=== PATIENT | male | born 1985 | race African-American/Black ===

== ENCOUNTER 2016-06-10 00:14 | Emergency (ER) | payer OTHER, MEDICAID ==
[~2016-06-10] VITALS: Ht 185.4 cm; Wt 160.0 kg
[~2016-06-10 00:14] MED LIST: ASPI-1035 PO; LISI-3 PO; SIMV20TA6 PO
[2016-06-10] MEDS ORDERED: KETOROLAC 30MG/ML VIAL IV ONE (01:30)
[2016-06-10 01:53] VITALS: BP 189/111
[2016-06-11] MEDS ORDERED: LISINOPRIL 20MG TABLET PO ONE (01:00)
== END 2016-06-10 01:55 | disposition home or self-care (01) ==
LOC: ER 00:30
DX: S39.012A Strain of muscle, fascia and tendon of lower back, initial encounter (principal); M19.90 Unspecified osteoarthritis, unspecified site; E78.00 Pure hypercholesterolemia, unspecified; I10 Essential (primary) hypertension; Z91.14 Patient's other noncompliance with medication regimen; X58.XXXA Exposure to other specified factors, initial encounter; Y93.89 Activity, other specified; Y92.013 Bedroom of single-family (private) house as the place of occurrence of the external cause
CPT/HCPCS: 96374; 99284; J1885

== ENCOUNTER 2016-06-14 09:20 | Emergency (ER) | payer MEDICAID, OTHER ==
[~2016-06-14] VITALS: Ht 185.4 cm; Wt 160.0 kg
[2016-06-14] MEDS ORDERED: DIAZEPAM 5 MG TABLET PO ONE (10:00)
[2016-06-14] MEDS ORDERED: MORPHINE SULFATE 10 MG/ML CPJ IM ONE (10:00)
[2016-06-14] MEDS ORDERED: ONDANSETRON 4MG ODT PO ONE (10:00)
[2016-06-14 12:00] VITALS: BP 185/129
== END 2016-06-14 12:00 | disposition home or self-care (01) ==
LOC: ER 09:47
DX: M54.40 Lumbago with sciatica, unspecified side (principal); I10 Essential (primary) hypertension; M19.90 Unspecified osteoarthritis, unspecified site; E78.00 Pure hypercholesterolemia, unspecified; Z79.82 Long term (current) use of aspirin; Z79.899 Other long term (current) drug therapy
CPT/HCPCS: 72100; 99284

== ENCOUNTER 2016-07-15 18:55 | Emergency (ER) | payer OTHER ==
[~2016-07-15] VITALS: Ht 185.4 cm; Wt 163.0 kg
[2016-07-15] MEDS ORDERED: IBUPROFEN 600MG TABLET PO ONE (22:45)
[2016-07-16 00:09] VITALS: BP 149/88
== END 2016-07-16 01:42 | disposition home or self-care (01) ==
LOC: ER 22:05
DX: S83.92XA Sprain of unspecified site of left knee, initial encounter (principal); M19.90 Unspecified osteoarthritis, unspecified site; I10 Essential (primary) hypertension; E78.00 Pure hypercholesterolemia, unspecified; M54.30 Sciatica, unspecified side; X58.XXXA Exposure to other specified factors, initial encounter; Y93.9 Activity, unspecified; Y92.018 Other place in single-family (private) house as the place of occurrence of the external cause
CPT/HCPCS: 73562; 99284; Z7610

== ENCOUNTER 2017-03-15 23:59 | Emergency (ER) | payer OTHER ==
[~2017-03-15] VITALS: Ht 185.4 cm; Wt 170.0 kg
[~2017-03-15 23:59] MED LIST changes: -ASPI-1035 PO; +ASPI-1159 PO
[2017-03-16 00:37] VITALS: BP 160/99
[2017-03-16] MEDS ORDERED: BENZONATATE 100MG CAPSULE PO ONE (01:45)
== END 2017-03-16 02:14 | disposition home or self-care (01) ==
LOC: ER 23:59
DX: J06.9 Acute upper respiratory infection, unspecified (principal); I10 Essential (primary) hypertension; Z79.82 Long term (current) use of aspirin
CPT/HCPCS: 99283

== ENCOUNTER 2018-02-25 19:45 | Emergency (ER) | payer OTHER ==
[~2018-02-25] VITALS: Ht 185.4 cm; Wt 181.0 kg
[~2018-02-25 19:45] MED LIST changes: +ALLO100T PO; +AMLO2.5T45 PO
[2018-02-25 21:06] VITALS: BP 162/106
== END 2018-02-25 23:40 | disposition left against medical advice (07) ==
LOC: ER 19:45
DX: Z53.21 Procedure and treatment not carried out due to patient leaving prior to being seen by health care provider (principal)

== ENCOUNTER 2019-05-14 10:59 | Emergency (ER) | payer OTHER ==
[~2019-05-14] VITALS: Ht 188 cm; Wt 165.0 kg
[~2019-05-14 10:59] MED LIST changes: -ASPI-1159 PO; +ASPI-1497 PO; +SIMV-43 PO; -SIMV20TA6 PO
[2019-05-14] MEDS ORDERED: HYDROCODONE/ACETAMINOPHEN 5/325MG TABLET PO STA (11:43)
[2019-05-14] MEDS ORDERED: KETOROLAC 60MG/2ML VIAL IM STA (11:43)
[2019-05-14] MEDS ORDERED: CLONIDINE 0.1MG TABLET PO ONE (11:45)
[2019-05-14 12:53] VITALS: BP 160/100
== END 2019-05-14 12:54 | disposition home or self-care (01) ==
LOC: ER 10:59
DX: M25.562 Pain in left knee (principal); R03.0 Elevated blood-pressure reading, without diagnosis of hypertension; E78.00 Pure hypercholesterolemia, unspecified; I10 Essential (primary) hypertension; Z79.899 Other long term (current) drug therapy; Z79.82 Long term (current) use of aspirin
CPT/HCPCS: 96372; 99283; J1885

== ENCOUNTER 2019-09-22 22:19 | Emergency (ER) | payer OTHER ==
[~2019-09-22] VITALS: Ht 185.4 cm; Wt 123.0 kg
[2019-09-22 22:27] VITALS: BP 216/141
== END 2019-09-23 03:40 | disposition left against medical advice (07) ==
LOC: ER 22:19
DX: Z53.21 Procedure and treatment not carried out due to patient leaving prior to being seen by health care provider (principal)

== ENCOUNTER 2024-05-13 20:02 | Inpatient (IN) | payer OTHER ==
[~2024-05-13] VITALS: Ht 185.4 cm; Wt 164.2 kg
[2024-05-13 20:38] LABS: BASOPHILS % 0.4 % (0.0-2.0); DIFFERENTIAL COMMENT 0; EOSINOPHILS % 1.6 % (0.0-5.0); HEMATOCRIT. 41.8 % (42.0-52.0); HEMOGLOBIN. 12.9 g/dL (14.0-18.0); LYMPHOCYTES % 39.5 % (20.0-50.0); MEAN CORPUSCULAR HEMOGLOBIN 22.4 pg (28.0-32.0); MEAN CORPUSCULAR VOLUME 72.4 fL (80.0-94.0); MEAN PLATELET VOLUME 7.9 fl (7.4-10.4); MONOCYTES % 10.2 % (2.0-8.0); NEUTROPHILS % 48.3 % (40.0-76.0); PLATELET 207 x1000/uL (130-400); RED BLOOD CELL COUNT 5.78 mill/uL (4.7-6.1); RED CELL DISTRIBUTION WIDTH 16.1 % (11.6-14.6); WHITE BLOOD COUNT 4.6 x1000/uL (4.5-11.0)
[2024-05-13] MEDS: NITROGLYCERIN OINT 1GM/INCH UDPKT TD ONE (20:40)
[2024-05-13 20:46] LABS: CHLORIDE 105 mEq/L (98-107); POTASSIUM 3.6 mEq/L (3.5-5.1); SODIUM 141 mEq/L (136-145)
[2024-05-13 20:47] LABS: CALCIUM 9.1 mg/dL (8.7-10.4); CARBON DIOXIDE 30 mEq/L (21-32)
[2024-05-13 20:48] LABS: INR 0.9; PARTIAL THROMBOPLASTIN TIME 26.8 sec (23.4-31.0)
[2024-05-13 20:52] LABS: CREATININE 1.8 mg/dL (0.6-1.3); GLUCOSE 110 mg/dL (70-105); UREA NITROGEN BLOOD 19 mg/dL (9-23)
[2024-05-13 21:11] LABS: TROPONIN I HIGH SENSITIVITY 239 ng/L (3.0-53)
[2024-05-13] MEDS: ASPIRIN 325MG EC TABLET PO ONE (21:39)
[2024-05-13] MEDS: CLOPIDOGREL 75MG TABLET PO ONE (21:39)
[2024-05-13] MEDS ORDERED: DOCUSATE SODIUM 100MG CAPSULE PO PRN (23:45)
[2024-05-13] MEDS ORDERED: LORAZEPAM 0.5MG TABLET PO PRN (23:45)
[2024-05-13] MEDS ORDERED: ONDANSETRON HCL 4MG/2ML INJ IV PRN (23:45)
[2024-05-13] MEDS ORDERED: IPRATROPIUM/ALBUTEROL 0.5-3(2.5)MG/3ML NEB HHN PRN (23:45)
[2024-05-13] MEDS ORDERED: GUAIFENESIN 200MG/10ML SUGAR FREE UDC PO PRN (23:45)
[2024-05-13] MEDS ORDERED: ACETAMINOPHEN 325MG TABLET PO PRN (23:45)
[2024-05-14] MEDS: ACETAMINOPHEN 325MG TABLET PO PRN (00:40)
[2024-05-14] MEDS ORDERED: NITROGLYCERIN 0.4MG TABLET SL SL PRN (02:30)
[2024-05-14] MEDS: ENOXAPARIN 150MG/ML SYR SUBCUT SCH (02:30)
[2024-05-14] MEDS: CLONIDINE 0.1MG TABLET PO PRN (04:07)
[2024-05-14 04:47] LABS: CLARITY URINE CLEAR (CLEAR); COLOR URINE YELLOW (YELLOW); GLUCOSE URINE TRACE (NEGATIVE); KETONES URINE NEGATIVE (NEGATIVE); LEUKOCYTE ESTERASE URINE NEGATIVE (NEGATIVE); NITRITE URINE NEGATIVE (NEGATIVE); OCCULT BLOOD URINE NEGATIVE (NEGATIVE); PH URINE 5.5 (4.5-8.0); PROTEIN URINE 2+ (NEGATIVE); SPECIFIC GRAVITY URINE 1.012 (1.005-1.030); UROBILINOGEN URINE 0.2 E.U./dL (0.2-1.0)
[2024-05-14 05:07] LABS: HEMATOCRIT 40.2 % (42.0-52.0); HEMOGLOBIN 12.2 g/dL (14.0-18.0); MEAN CORPUSCULAR HGB CONC 30.3 g/dL (31.0-37.0); MEAN CORPUSCULAR VOLUME 72.6 fL (80.0-94.0); PLATELET 200 x1000/uL (130-400); RED BLOOD CELL COUNT 5.54 mill/uL (4.7-6.1); RED CELL DISTRIBUTION WIDTH 15.9 % (11.6-14.6)
[2024-05-14 05:14] LABS: CREATINE KINASE MB FRACTION 1.5 ng/mL (0.5-3.6)
[2024-05-14 05:19] LABS: CHLORIDE 105 mEq/L (98-107); POTASSIUM 3.8 mEq/L (3.5-5.1); SODIUM 142 mEq/L (136-145)
[2024-05-14 05:19] LABS: *AMPHETAMINES SCREEN URINE NEGATIVE (NEGATIVE); *BARBITURATES SCREEN URINE NEGATIVE (NEGATIVE); *BENZODIAZEPINES SCREEN URINE NEGATIVE (NEGATIVE); *COCAINE SCREEN URINE NEGATIVE (NEGATIVE)
[2024-05-14 05:20] LABS: CANNABINOID URINE SCREEN NEGATIVE (NEGATIVE); ECSTASY MDMA SCREEN URINE NEGATIVE (NEGATIVE); METHADONE URINE SCREEN NEGATIVE (NEGATIVE); OPIATES URINE SCREEN NEGATIVE (NEGATIVE); PHENCYCLIDINE URINE SCREEN NEGATIVE (NEGATIVE)
[2024-05-14 05:20] LABS: CALCIUM 8.5 mg/dL (8.7-10.4); CARBON DIOXIDE 32 mEq/L (21-32)
[2024-05-14 05:25] LABS: CREATININE 1.7 mg/dL (0.6-1.3); GLUCOSE 129 mg/dL (70-105); UREA NITROGEN BLOOD 17 mg/dL (9-23)
[2024-05-14 05:27] LABS: ALANINE AMINOTRANSFERASE 11 IU/L (10-49); ALBUMIN 3.5 g/dL (3.2-4.8); ASPARTATE AMINOTRANSFERASE 13 IU/L (<34)
[2024-05-14 05:28] LABS: BILIRUBIN TOTAL 0.6 mg/dL (0.1-1.0); PROTEIN TOTAL 6.2 g/dL (6.0-8.3)
[2024-05-14 05:30] LABS: RBC URINE 0-2 /hpf (0-2); SQUAMOUS EPITHELIAL CELL URINE FEW /lpf (RARE/1+)
[2024-05-14 05:31] LABS: BACTERIA URINE NONE SEEN; FINE GRANULAR CASTS URINE 0-5 /lpf
[2024-05-14] MEDS: HYDRALAZINE HCL 50MG TABLET PO SCH (06:19)
[2024-05-14 08:30] VITALS: BP 153/93; PULSE 69; RESP 17; TEMP 36.8; O2SAT 97
[2024-05-14] MEDS: AMLODIPINE 10MG TABLET PO SCH (10:03)
[2024-05-14] MEDS: ASPIRIN 81MG TABLET PO SCH (10:03)
[2024-05-14] MEDS: HYDROCHLOROTHIAZIDE 25MG TABLET PO SCH (10:03)
[2024-05-14 10:53] VITALS: BP 153/93; PULSE 69; RESP 17; TEMP 36.8
[2024-05-14 12:00] VITALS: BP 158/110; PULSE 73; RESP 16; TEMP 36.7; O2SAT 96
[2024-05-14] MEDS: ISOSORBIDE MONONITRATE 60MG TABLET SR 24HR PO SCH (13:51)
[2024-05-14 13:55] LABS: TROPONIN I HIGH SENSITIVITY 380 ng/L (3.0-53)
[2024-05-14] MEDS: SODIUM CHLORIDE 0.9% 1,000 ML IV SCH (14:01)
[2024-05-14 16:00] VITALS: BP 147/100; PULSE 89; RESP 18; TEMP 36.8; O2SAT 97
[2024-05-14 19:08] LABS: CREATININE URINE RANDOM 43.2 mg/dL
[2024-05-14 20:00] VITALS: BP 168/98; PULSE 70; RESP 16; TEMP 36.5; O2SAT 100
[2024-05-14] MEDS: FAMOTIDINE 20MG TABLET PO SCH (21:28)
[2024-05-14] MEDS: ATORVASTATIN CALCIUM 40MG TABLET PO SCH (21:29)
[2024-05-14 22:45] LABS: CREATINE KINASE MB FRACTION < 0.5 ng/mL (0.5-3.6)
[2024-05-14 22:46] LABS: CREATINE KINASE 70 IU/L (46-171)
[2024-05-14 22:49] LABS: TROPONIN I HIGH SENSITIVITY 300 ng/L (3.0-53)
[2024-05-14 22:55] LABS: T4 FREE 1.32 ng/dL (0.89-1.76); THYROID STIMULATING HORMONE 3.01 uIU/mL (0.55-4.78)
[2024-05-15] VITALS (7 sets, daily range): BP systolic 123–182; BP diastolic 74–114; PULSE 60–91; RESP 12–20; TEMP 36.7–37.3; O2SAT 92–97
[2024-05-15] MEDS: ENOXAPARIN 40MG/0.4ML SYR SUBCUT SCH (08:24)
[2024-05-15] MEDS: FUROSEMIDE 40MG/4ML VIAL IVP NR (14:02)
[2024-05-15] MEDS: CARVEDILOL 6.25 MG TABLET PO SCH (14:03)
[2024-05-15] MEDS ORDERED: DEXTROSE 50% WATER 50ML SYRINGE IV PRN (20:00)
[2024-05-15] MEDS: BLOOD SUGAR DIAGNOSTIC STRIP TEST SCH (21:00)
[2024-05-15] MEDS: HYDRALAZINE 20MG/ML VIAL IV PRN (21:27)
[2024-05-16] VITALS: BP 153/95; PULSE 62; RESP 15; TEMP 37; O2SAT 98
[2024-05-16 04:00] VITALS: BP 153/97; PULSE 68; RESP 9; TEMP 36.7; O2SAT 96
[2024-05-16 08:00] VITALS: BP 159/96; PULSE 68; RESP 14; TEMP 37.2; O2SAT 96
[2024-05-16 11:04] LABS: POTASSIUM 3.4 mEq/L (3.5-5.1)
[2024-05-16 11:05] LABS: CALCIUM 9.7 mg/dL (8.7-10.4)
[2024-05-16 11:10] LABS: CREATININE 1.8 mg/dL (0.6-1.3)
[2024-05-16] MEDS ORDERED: LIP40 PO (11:40)
[2024-05-16] MEDS ORDERED: ASPI-1160 PO (11:40)
[2024-05-16] MEDS ORDERED: HYDR50TA39 PO (11:40)
[2024-05-16] MEDS ORDERED: LISI10TA26 PO (11:40)
[2024-05-16] MEDS ORDERED: FURO40TA5 PO (11:40)
[2024-05-16] MEDS ORDERED: COR6 PO (11:40)
[2024-05-16] MEDS ORDERED: AMLO10TA80 PO (11:40)
[2024-05-16 11:47] VITALS: BP 159/96; PULSE 68; TEMP 98.9; O2SAT 97
[2024-05-16] MEDS ORDERED: ISOS60TA76 PO (11:48)
[2024-05-16 12:04] VITALS: BP 133/75; PULSE 62; RESP 15; TEMP 36.7; O2SAT 96
== END 2024-05-16 12:37 | disposition home or self-care (01) | DRG 199 ==
LOC: ER 20:02 → 3WST 21:34 → EDBEDREQ 21:42 → EDBEDREQTM 21:42
PROVIDERS: ADMIT Internal Medicine; ATTEND Internal Medicine
DX: I16.1 Hypertensive emergency (principal); I21.A1 Myocardial infarction type 2; N17.9 Acute kidney failure, unspecified; E11.22 Type 2 diabetes mellitus with diabetic chronic kidney disease; E66.01 Morbid (severe) obesity due to excess calories; D64.9 Anemia, unspecified; E78.5 Hyperlipidemia, unspecified; I12.9 Hypertensive chronic kidney disease with stage 1 through stage 4 chronic kidney disease, or unspecified chronic kidney disease; N18.9 Chronic kidney disease, unspecified; F17.210 Nicotine dependence, cigarettes, uncomplicated; G47.33 Obstructive sleep apnea (adult) (pediatric); N14.11 Contrast-induced nephropathy; F41.9 Anxiety disorder, unspecified; J45.909 Unspecified asthma, uncomplicated; Z79.82 Long term (current) use of aspirin; Z79.899 Other long term (current) drug therapy; Z68.42 Body mass index [BMI] 45.0-49.9, adult; Z82.49 Family history of ischemic heart disease and other diseases of the circulatory system
CPT/HCPCS: 36415; 71045; 76770; 80048; 80053; 80061; 80305; 81003; 82550; 82553; 82570; 82962; 83880; 84156; 84439; 84443; 84484; 85025; 85027; 93005; 93306; 99285; J0360; J1650; J1940; J7030